=== PATIENT | male | born 1990 | race Two or more races ===

== ENCOUNTER → 2025-01-09 | Emergency (ER) | payer BC ==
[~2025-01-09] VITALS: Ht 188 cm; Wt 80.7 kg
[~2025-01-09] MED LIST: LORazepam 2 MG/ML VIAL IM ONE; MAXITROL EYE DRO5 ML OP; TETRACAINE HCL 20 DR/ML DROPS OP ONE
== END | disposition home or self-care (01) ==
LOC: ER 10:48
DX: H57.10 Ocular pain, unspecified eye (principal); F41.0 Panic disorder [episodic paroxysmal anxiety]